=== PATIENT | male | born 1945 | race Caucasian/White ===

== ENCOUNTER → 2020-04-22 08:18 | Outpatient (CLI) | payer OTHER, SELFPAY ==
--- NOTE | 2020-04-22 09:20 | DI.CT.S_ITS ---
PROCEDURE: CT CHEST ABD PEL W CON INDICATIONS: Abnormal weight loss,Epigastric pain TECHNIQUE: After the administration of oral and intravenous contrast, 5 mm thick sections acquired from the lung apices to the symphysis. 5 mm coronal and sagittal reformats were performed, with additional 7 mm coronal MIP reformats through the lungs. For radiation dose reduction, the following was used: automated exposure control, adjustment of mA and/or kV according to patient size. COMPARISON: None. FINDINGS: Image quality: Excellent. CHEST: Scattered subsegmental atelectasis and/or scarring. No focal consolidation. No pleural effusions or pneumothorax. Central and peripheral airways appear patent and normal in caliber. Mediastinum: Heart size is normal. No pericardial effusion. No mediastinal or hilar adenopathy by size criteria. Thoracic aorta and central pulmonary arteries are normal in size. Small hiatal hernia. Chest wall: No axillary or supraclavicular adenopathy by size criteria. Thyroid is grossly unremarkable ABDOMEN: Solid organs: Liver is normal in size and enhancement. The gallbladder is grossly unremarkable. Biliary system is non dilated. Pancreas enhances normally. Spleen is normal in size and enhancement. No adrenal nodules. Bilateral renal cortical thinning/atrophy. No hydronephrosis. Punctate possible left nephrolithiasis on image 42/5, in the interpolar region Peritoneum and bowel: Bowel loops demonstrate normal wall thickness and caliber. No free fluid or air. Colonic diverticulosis is seen without evidence of acute complication. Nodes and vessels: No retroperitoneal or mesenteric adenopathy by size criteria. Aorta and inferior vena cava are normal in size. Tiny fat containing periumbilical hernia. PELVIS: Genitourinary: Bladder wall thickness is normal. Miscellaneous: No inguinal hernias or adenopathy. Bones: No vertebral body compression fracture. Spondylytic changes and facet arthropathy. IMPRESSION: Incidental colonic diverticulosis. No lymphadenopathy. No discrete mass lesion identified. Additional chronic and incidental findings as above. Dictated by: Addy Pagan M.D. on 04/22/2020 at 9:57 Approved by: Addy Pagan M.D. on 04/22/2020 at 10:02
== END ==
PROVIDERS: PCP Internal Medicine; Referring Provider Internal Medicine; Visit Provider Internal Medicine
DX: R10.13 Epigastric pain (principal); R63.4 Abnormal weight loss; R91.1 Solitary pulmonary nodule; K57.90 Diverticulosis of intestine, part unspecified, without perforation or abscess without bleeding; F10.11 Alcohol abuse, in remission; Z87.891 Personal history of nicotine dependence
CPT/HCPCS: 71260; 74177; Q9967

== ENCOUNTER → 2020-09-20 12:32 | Outpatient (CLI) | payer OTHER, SELFPAY | PROVIDERS: PCP Internal Medicine; Referring Provider Internal Medicine; Visit Provider Internal Medicine | DX: M85.851 Other specified disorders of bone density and structure, right thigh (principal); Z87.891 Personal history of nicotine dependence | CPT/HCPCS: 77080 ==

== ENCOUNTER → 2020-12-21 10:52 | Outpatient (CLI) | payer OTHER, SELFPAY ==
[2020-12-21 12:35] LABS: COVID19 -Nasal RAPID Negative (Negative)
== END ==
PROVIDERS: PCP Internal Medicine; Visit Provider Student in an Organized Health Care Education/Training Program
DX: Z01.812 Encounter for preprocedural laboratory examination (principal); Z20.822 Contact with and (suspected) exposure to COVID-19
CPT/HCPCS: 87635; C9803

== ENCOUNTER 2020-12-23 12:25 | Day surgery (SDC) | payer OTHER, SELFPAY ==
[2020-12-23] VITALS (7 sets, daily range): BP systolic 90–122; BP diastolic 53–67; PULSE 64–78; RESP 12–18; TEMP 36.3–37.3; O2SAT 94–97
--- NOTE | 2020-12-23 | PATH_ITS ---
[facility] Accession Number: [id number] . 01 Material submitted: . colon - ASCENDING COLON 2MM . 02 Diagnosis: Ascending Colon, 2 mm, Biopsy: Tubular adenoma. MRV 12/27/2020 1123 Local . 02 Electronically signed: . Jackie Pedroza MD, Pathologist NPI- [id number] . 01 Gross description: . ASCENDING COLON 2MM: Received in formalin is 1 fragment(s) of van, soft tissue measuring 0.4 x 0.3 x 0.2 cm submitted entirely in 1 cassette(s) /LIZ 12/24/2020 0511 Local . 02 Pathologist provided ICD-10: D12.2 . 02 CPT . 336201 Performed at: 01 [facility] [address] [id number] MD David Hernandez MD Phone: [phone] Performed at: 02 [facility] [address] [place], [place] [id number] MD Jackie Pedroza MD Phone: [phone]
--- NOTE | 2020-12-23 12:04 | PM.HP.1 ---
History of Present Illness History of Present Illness Date Patient Seen: 12/23/20 Chief complaint: SDC Narrative: 75 year old male comes in today for consideration of a screening colonoscopy. Last colonoscopy in 2010, normal. There have been no lower GI symptoms suggesting disease such as change in bowel habits, bleeding, abdominal pain or anemia. There's been no family history of colon cancer or colon polyps. Overall health issues have been stable, including no major cardiac events for at least 6 weeks. PCP: NAJMA Garcia Past medical history: Osteopenia Insomnia Peripheral neuropathy, feet Unintentional weight loss History of tobacco dependence History of alcohol abuse Basal julia carincoma Past surgical history: Colonoscopy, 2010, normal Family history: No colon cancer or colon polyps. Social history: , 2009. Retired. 1 alcoholic drink per week. Patient History Medical History (Updated 12/23/20 @ 12:54 by Loyda Westbrook RN) Basal cell carcinoma History of alcohol abuse Hypertriglyceridemia Osteopenia Osteopenia Peripheral neuropathy Stopped smoking with greater than 40 pack year history Unintentional weight loss Meds Home Medications and Allergies Home Medications Medication Instructions Recorded Confirmed Type gabapentin 100 mg capsule 100 mg PO BID 12/23/20 12/23/20 History melatonin 5 mg capsule 5 - 15 mg PO BEDTIME 12/23/20 12/23/20 History multivitamin 1 tab PO DAILY 12/23/20 12/23/20 History omega-3 fatty acids 1 cap PO DAILY 12/23/20 12/23/20 History Allergies Allergy/AdvReac Type Severity Reaction Status Date / Time No Known Drug Allergies Allergy Verified 12/23/20 12:45 Review of Systems Review of Systems Narrative: See HPI. Exam Narrative Exam Narrative: GENERAL: Alert and oriented, appearing stated age and in no acute distress. HEENT: Head normocephalic/atraumatic. Pupils equal, round, and reactive to light and accomodation. Extraocular muscles intact. Tympanic membranes clear. Nasal mucosa moist, septum midline. Oral mucosa moist, no lesions. Neck soft and supple, no lymphadenopathy. LUNGS: Clear to ausculation bilaterally, no wheezes, rhonchi or rales. CV: Normal S1 and S2 with regular rate and rhythm, no audible murmurs, rubs or gallops. ABDOMEN: Soft, non-tender, non-distended, no organomegaly. Positive bowel sounds. EXTREMITIES: No clubbing, cyanosis, or edema. NEURO: Cranial nerves II through XII grossly intact, no focal deficits. PSYCH: Alert and oriented x 3. SKIN: No concerning lesions. Assessment & Plan Assessment & Plan narrative: 1. Screening for colon cancer Plan for colonoscopy. The nature and character of the procedure as well as anticipated results were discussed. The possibility of not completing the procedure was also discussed. Possible complications including aspiration pneumonia, bleeding, perforation and reaction to medications either for sedation or preparation and missed lesions were discussed. Questions were answered and proceeding to the colonoscopy was elected. Informed consent signed. I sincerely appreciate the referral allowing me to participate in this patient's care. Please contact me with any questions or concerns.
--- NOTE | 2020-12-23 12:07 | PM.OP.ENDO ---
Operative Date/Time/Diagnoses Date of procedure: 12/23/20 Procedure Notes SCOAP/Timeout: 2:11 p.m. Procedure in detail: ENDOSCOPIST: Fanny Grande MD Sedation RN: Priyanka Goodwin RN Sedation start time: 1:11 p.m. Sedation end time: 1:52 p.m. PROCEDURE: Colonoscopy with cold biopsy INDICATIONS: 1. Screening for colon cancer MEDICATION: Levsin 0.125 mg sublingual, incremental doses of Versed and fentanyl until appropriate level sedation achieved. ASA CLASS: 2 CECAL WITHDRAWAL TIME: 7 minutes COMPLICATIONS: None. EXTENT OF PROCEDURE: Cecum. QUALITY OF PREP: Good with portions of liquid stool. PROCEDURE: Prior to insertion of the colonoscope, a digital rectal examination was accomplished with circumferential palpation of the distal rectal mucosa without significant findings being noted. The high-definition colonoscope was passed into the rectum in the usual fashion and advanced over to the cecum without difficulty. The ileocecal valve, appendiceal stoma, and medial wall all could be inspected and no abnormalities were seen. ASCENDING COLON: As the colonoscope was withdrawn, care was taken to expose and inspect the haustral folds and a 2 mm polyp was seen and removed with cold biopsy forceps. Mild diverticulosis. HEPATIC FLEXURE: Normal, no polyps, diverticula or other abnormalities. TRANSVERSE COLON: Mild diverticulosis otherwise, normal, no polyps, or other abnormalities. DESCENDING COLON: Moderate diverticulosis, otherwise, normal, no polyps, or other abnormalities. SIGMOID COLON: Moderate diverticulosis, otherwise, normal, no polyps, or other abnormalities. RECTUM: Normal. J maneuver was produced. There was no significant perianal disease. The J maneuver was broken. The remainder of the rectum was inspected and there was moderate external hemorrhoid disease. The scope was withdrawn. IMPRESSION: 1. Ascending polyp x1, 2 mm, removed with cold biopsy forceps 2. Pancolonic diverticulosis, left greater than right 3. External hemorrhoid disease, nonthrombosed, moderate PLAN: 1. Follow-up in clinic status post pathology results. The possibility of a missed lesion including a malignancy has been discussed with the patient previously. Potential alarm symptoms have been discussed and should be reported immediately.
[2020-12-23] MEDS: LACTATED RINGERS 1,000 ML 200 ML IV (12:54)
[2020-12-23] MEDS: HYOSCYAMINE 0.125 MG TABLET PO (13:10)
[2020-12-23] MEDS: MIDAZOLAM 5 MG/5 ML VIAL IV (14:09)
[2020-12-23] MEDS: fentaNYL 250 MCG/5 ML INJ IV (14:09)
== END 2020-12-23 15:25 | disposition home or self-care (01) ==
PROVIDERS: PCP Internal Medicine; Referring Provider Student in an Organized Health Care Education/Training Program; Visit Provider Student in an Organized Health Care Education/Training Program
PROC: 0DJD8ZZ Inspection of Lower Intestinal Tract, Via Natural or Artificial Opening Endoscopic (ICD-10-PCS; CPT 45378; principal; 2020-12-23 13:45)
DX: Z12.11 Encounter for screening for malignant neoplasm of colon (principal); K57.30 Diverticulosis of large intestine without perforation or abscess without bleeding; D12.2 Benign neoplasm of ascending colon
CPT/HCPCS: 45380; J2250; J3010

== ENCOUNTER → 2022-10-25 11:17 | Outpatient (CLI) | payer OTHER, SELFPAY ==
--- NOTE | 2022-10-25 | DI.CT.S_ITS ---
PROCEDURE: CT CHEST WO CON INDICATIONS: Other nonspecific abnormal finding of lung field TECHNIQUE: Noncontrast 5 mm thick sections acquired from the pulmonary apices to the posterior costophrenic angles. 1 mm lung window, 5 mm thick coronal and sagittal and 7 mm axial MIP reformats were then acquired. For radiation dose reduction, the following was used: automated exposure control, adjustment of mA and/or kV according to patient size. COMPARISON: [facility], CT, CT CHEST ABD PEL W CON, 04/22/2020, 9:15. FINDINGS: Image quality: Excellent. Lungs and pleura: Pulmonary nodules are as follows (all described on series 3): 1. Extreme left lung base, lateral aspect, image 303, stable 8 mm pulmonary nodule. 2. Stable 6 mm subsolid pulmonary nodule, image 77/3. No new or increasing pulmonary nodules. Mediastinum: Heart size is normal. No pericardial effusion. No mediastinal adenopathy by size criteria. Thoracic aorta and central pulmonary arteries are normal in size. Esophagus is normal in caliber. No hiatal hernia. Bones and chest wall: No suspicious bony lesions. No vertebral body compression fractures. No axillary or supraclavicular adenopathy by size criteria. Thyroid gland unremarkable . Abdomen: Visualized upper abdominal solid organs and bowel loops appear normal in the absence of contrast. IMPRESSION: 1. 2 separate pulmonary nodules are stable times greater than 2 years, and are consistent with benign pulmonary nodules. Comment: If this patient has significant smoking history and satisfies criteria for lung screen CT, would recommend lung screen CT in 12 months. If there is no significant smoking history, no further follow-up is suggested for these lesions. Dictated by: Taras Leigh M.D. on 10/25/2022 at 18:00 Approved by: Taras Leigh M.D. on 10/25/2022 at 18:06
== END ==
PROVIDERS: PCP Internal Medicine; Referring Provider Internal Medicine; Visit Provider Internal Medicine
DX: R91.8 Other nonspecific abnormal finding of lung field (principal); G57.93 Unspecified mononeuropathy of bilateral lower limbs
CPT/HCPCS: 71250

== ENCOUNTER 2022-10-26 12:09 | Emergency (ER) | payer OTHER, SELFPAY ==
[2022-10-26 12:23] VITALS: BP 148/97; PULSE 87; RESP 18; TEMP 36.8; O2SAT 97; BMI 24.6
--- NOTE | 2022-10-26 12:36 | ED_ITS ---
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 Patient states about 830 this morning he was working on his laptop he noticed he had blurred vision for about 60 seconds or less that resolved on its own. He states it seemed to be more on the periphery and clear in the central. He states it seemed to be both eyes but the right eye seemed to clear up faster than the left. Patient states no additional symptoms. He has not had symptoms in the past that are similar. Denies headache, he denies any dizziness or lightheadedness, no passing out. No difficulty with speech. No numbness, tingling or weakness. No chest pain or shortness of breath. No nausea or vomiting. Normal bowel movements with no black or bloody stools. No urinary symptoms. No new swelling in extremities. Patient states his only medication daily as gabapentin. He states he had cataract surgery about a month ago. He follows with kash BAUER. Former smoker no active tobacco use, no alcohol, no illicit. Rema Arnett is his primary care. He states he presents today after googling his symptoms. On Anticoagulants: No Related Data Home Medications Medication Instructions Recorded Confirmed gabapentin 100 mg capsule 100 mg PO BID 12/23/20 12/23/20 melatonin 5 mg capsule 5 - 15 mg PO BEDTIME 12/23/20 12/23/20 multivitamin 1 tab PO DAILY 12/23/20 12/23/20 omega-3 fatty acids 1 cap PO DAILY 12/23/20 12/23/20 Allergies Allergy/AdvReac Type Severity Reaction Status Date / Time No Known Drug Allergies Allergy Verified 12/23/20 12:45 Review of Systems Review of Systems ROS Unobtainable: All systems reviewed & are unremarkable except as noted in HPI and below Hematologic/Lymphatic On Anticoagulants: No Patient History Medical History Basal cell carcinoma History of alcohol abuse Hypertriglyceridemia Osteopenia Osteopenia Peripheral neuropathy Stopped smoking with greater than 40 pack year history Unintentional weight loss Social History household members: none Smoking Status: Former smoker alcohol intake: current Smoking Status: Former smoker alcohol intake frequency: holidays/special occasions only Substance Use Type: does not use Exam Narrative Exam Narrative: GEN: well nourished, well appearing male, alert and oriented x 3, patient appears to be in mild distress. HEENT: Atraumatic, pupils are equal round reactive to light, extraocular movements are intact, nares are clear. no facial droop. Visual acuity: right [20/50], left [20/30] without correction. Twenty 40 bilaterally. General: no globe trauma Eyelids: normal inspection Conjunctiva/Sclera: normal inspection HEART: Regular rate and rhythm without murmur, clicks, rubs. Pulses are equal in upper and lower extremities LUNGS:Lungs clear to auscultation, no wheezes, rales, crackles, chest moves sy mmetrically ABD:bowel sounds normal, soft, non-tender, no guarding, rebound, rigidity, no masses noted, no hepatosplenomegaly MSCL: Non-tender, no muscle atrophy, muscles strength 5/5 upper and lower extremities, full range of motion, normal gait NEURO:CN 2-12 intact, sensation normal, finger nose finger test normal, heel alicea test normal SKIN: No rash, erythema or other skin changes Initial Vital Signs Initial Vital Signs: Vital Signs Temperature 98.3 F 10/26/22 12:23 Pulse Rate 87 10/26/22 12:23 Respiratory Rate 18 10/26/22 12:23 Blood Pressure 148/97 H 10/26/22 12:23 Pulse Oximetry 97 10/26/22 12:23 Oxygen Delivery Method Room Air 10/26/22 12:23 Scores NIH Stroke Scale Level of Conciousness: Alert, keenly responsive Ask month/age: Answers both questions correctly. Open/close eyes, close hand: Performs both tasks correctly Best gaze horizontal: Normal Visual tony: No visual loss Facial palsy: Normal symetrical movement Left arm drift: No drift for full 10 sec Right arm drift: No drift for full 10 sec Left leg drift: No drift for full 5 sec Right leg drift: No drift for full 5 sec Limb ataxia: Absent Sensory on face/arms/legs: Normal, no sensory loss Best language: No aphasia, normal Dysarthria: Normal Extinction or inattention: No abnormality Total NIH Stroke scale score: 0 Course Orders Ordered: ED Orders 10/26/22 12:30 BMP [Basic Metabolic Panel] Stat CBC Auto Diff [Complete Blood Count AUTO DIFF] Stat PTT Partial Thromboplastin Holden Stat Prothrombin Time INR Stat 10/26/22 12:54 CT head/brain wo con Stat Vital Signs Vital signs: Vital Signs - 8 hr 10/26/22 12:23 10/26/22 13:30 10/26/22 14:21 Temperature 98.3 F Pulse Rate 87 79 80 Respiratory Rate 18 16 16 Blood Pressure 148/97 H 106/56 L 116/60 Pulse Oximetry 97 97 96 Oxygen Delivery Method Room Air Room Air Room Air MDM - Neuro Symptoms/Deficit Lab Data 10/26/22 12:30 10/26/22 12:30 Labs: Lab Results 10/26/22 10/26/22 10/26/22 Range/Units 12:30 12:30 12:30 WBC 11.3 H (4.5-11.0) X10^3/uL RBC 4.71 (4.5-5.9) X10^6/uL Hgb 14.3 (13.5-17.5) g/dL Hct 41.6 (41-53) % MCV 88.4 (80-100) fL MCH 30.3 (26-34) PG MCHC 34.3 (30-36) % RDW 13.9 (11.6-14.8) % Plt Count 238 (150-400) X10^3/uL Neut % (Auto) 79.1 H (50-75) % Lymph % (Auto) 12.7 L (25-40) % [place] % (Auto) 7.3 (3-14) % Eos % (Auto) 0.4 L (2-4) % Baso % (Auto) 0.5 (0-2) % Neut # (Auto) 8900 H (0148-0445) /uL Lymph # (Auto) 1400 (0155-9492) /uL [place] # (Auto) 800 (0-900) /uL Eos # (Auto) 0 (0-450) /uL Baso # (Auto) 100 (0-100) /uL PT 11.1 (10.1-12.7) SECONDS INR 1.0 (0.9-1.3) APTT 29 (26-36) SECONDS Sodium 138 (137-145) mmol/L Potassium 4.1 (3.4-5.1) mmol/L Chloride 106 (98-107) mmol/L Carbon Dioxide 26 (22-32) mmol/L BUN 12 (9-20) mg/dL Creatinine 0.75 (0.66-1.25) mg/dL Estimated GFR > 60 (>60) mL/min BUN/Creatinine Ratio 16.0 (6-22) Glucose 112 H (80-110) mg/dL Calcium 8.9 (8.4-10.2) mg/dL Imaging Data CT scan - head: Radiologist's Impression: [address] [address] [address] Scan Report Signed Patient: Magen Harrington MR#: [id number] : 1945 Acct:[id number] Age/Sex: 77 / M Date of Service: 10/26/22 Loc: ED Accession Number: [id number] ?? Procedure: CT head/brain wo con Ordering Provider: Naomi Humphrey D.O. PROCEDURE:? CT HEAD/BRAIN WO CON ? INDICATIONS:? blurred vision resolved. ? TECHNIQUE:? Noncontrast 4.5 mm thick angled axial sections acquired from the foramen magnum to the vertex, with coronal and sagittal reformats.? For radiation dose reduction, the following was used:? automated exposure control, adjustment of mA and/or kV according to patient size.? ? COMPARISON:? None. ? FINDINGS:? Image quality:? Excellent.? ? CSF spaces:? Basal cisterns are patent.? No extra-axial fluid collections.? Ventricles are normal in size and shape.? ? Brain:? No midline shift.? No intracranial masses or hemorrhage.? No area of hypodensity in a large vascular distribution to suggest acute infarction. Periventricular h ypodensity consistent with chronic microvascular ischemic change. Age-related parenchymal loss. ? Skull and face:? Calvarium and visualized facial bones are intact, without suspicious lesions.? ? Sinuses:? Visualized sinuses and mastoids are clear.? ? IMPRESSION:? No acute intracranial abnormality. ? ? Dictated by: Juan Miguel Nicolas M.D. on 10/26/2022 at 13:11 ? ? Approved by: Juan Miguel Nicolas M.D. on 10/26/2022 at 13:14?? MDM Narrative Medical decision making narrative: This a 77-year-old male who had less than 60 seconds of blurred vision both eyes more in the periphery than central. Patient's symptoms are less concerning for stroke, NIH is 0. His only medication is gabapentin for nondiabetic neuropathy. His neurologic exam is otherwise negative with no other acute changes. He did note he was working on his laptop there may have been some focusing issue. He is a month out from cataract surgery but has not been having pain, not having persistent or intermittent symptoms. Seemed to affect both eyes making issues such as retinal detachment, acute angle glaucoma or other changes much less likely. After discussion patient elects for some additional workup including imaging and labs Discharge Plan Departure Patient Disposition: Home Clinical Impression: Blurred vision Activity Restrictions/Additional Instructions: Your workup today is overall reassuring. Please follow-up for recheck if you have recurrent episodes of blurred vision that would recommend follow up with your set key driver at [facility]. If you develops your severe headaches, recurrent or persistent vision changes, new numbness, tingling weakness, loss of vision, difficulty with speech, facial droop, altered mental status were difficulties with gait or movement please return for re-evaluation. Prescriptions: No Action gabapentin 100 mg capsule 100 mg PO BID multivitamin Tablet 1 tab PO DAILY melatonin 5 mg Capsule 5 - 15 mg PO BEDTIME omega-3 fatty acids 1 cap PO DAILY Referrals: Rema Arnett ARNP [Primary Care Provider] - Stand Alone Forms: Patient Portal/API
--- NOTE | 2022-10-26 12:46 | PC.NURSE ---
Bilat vision blurriness and lightheadedness at 0830 that lasted one minute. No lasting symptoms. Negative FAST. A&Ox4. Clear speech, ambulating well.
--- NOTE | 2022-10-26 12:54 | DI.CT.S_ITS ---
PROCEDURE: CT HEAD/BRAIN WO CON INDICATIONS: blurred vision resolved. TECHNIQUE: Noncontrast 4.5 mm thick angled axial sections acquired from the foramen magnum to the vertex, with coronal and sagittal reformats. For radiation dose reduction, the following was used: automated exposure control, adjustment of mA and/or kV according to patient size. COMPARISON: None. FINDINGS: Image quality: Excellent. CSF spaces: Basal cisterns are patent. No extra-axial fluid collections. Ventricles are normal in size and shape. Brain: No midline shift. No intracranial masses or hemorrhage. No area of hypodensity in a large vascular distribution to suggest acute infarction. Periventricular hypodensity consistent with chronic microvascular ischemic change. Age-related parenchymal loss. Skull and face: Calvarium and visualized facial bones are intact, without suspicious lesions. Sinuses: Visualized sinuses and mastoids are clear. IMPRESSION: No acute intracranial abnormality. Dictated by: Juan Miguel Nicolas M.D. on 10/26/2022 at 13:11 Approved by: Juan Miguel Nicolas M.D. on 10/26/2022 at 13:14
[2022-10-26 13:04] LABS: Add Manual Diff / Slide Review NO; Basophils Absolute Auto 100 /uL (0-100); Basophils Percent Auto 0.5 % (0-2); Eosinophils Absolute Auto 0 /uL (0-450); Eosinophils Percent Auto 0.4 % (2-4); Hematocrit 41.6 % (41-53); Hemoglobin 14.3 g/dL (13.5-17.5); Lymphocytes Absolute Auto 1400 /uL (1100-4500); Lymphocytes Percent Auto 12.7 % (25-40); Mean Corpuscular HGB Conc 34.3 % (30-36); Mean Corpuscular Hemoglobin 30.3 PG (26-34); Mean Corpuscular Volume 88.4 fL (80-100); Monocytes Absolute Auto 800 /uL (0-900); Monocytes Percent Auto 7.3 % (3-14); Neutrophils Absolute Auto 8900 /uL (1500-7000); Neutrophils Percent Auto 79.1 % (50-75); Platelet Count 238 X10^3/uL (150-400); Prothrombin Time 11.1 SECONDS (10.1-12.7); Red Blood Cell Count 4.71 X10^6/uL (4.5-5.9); Red Cell Distribution Width 13.9 % (11.6-14.8); White Blood Cell Count 11.3 X10^3/uL (4.5-11.0)
[2022-10-26 13:06] LABS: PTT Partial Thromboplastin Tim 29 SECONDS (26-36)
[2022-10-26 13:08] LABS: Blood Urea Nitrogen 12 mg/dL (9-20); Calcium 8.9 mg/dL (8.4-10.2); Carbon Dioxide 26 mmol/L (22-32); Chloride 106 mmol/L (98-107); Estimated Glomerular Filt Rate > 60 mL/min (>60); Glucose 112 mg/dL (80-110); HEMOLYSIS < 15 (0-50); Potassium 4.1 mmol/L (3.4-5.1); Sodium 138 mmol/L (137-145)
[2022-10-26 13:30] VITALS: BP 106/56; PULSE 79; RESP 16; O2SAT 97
[2022-10-26 14:21] VITALS: BP 116/60; PULSE 80; RESP 16; O2SAT 96
== END 2022-10-26 14:23 | disposition home or self-care (01) ==
PROVIDERS: Emergency Provider Emergency Medicine; PCP Internal Medicine
DX: H53.9 Unspecified visual disturbance (principal); R29.700 NIHSS score 0; R79.89 Other specified abnormal findings of blood chemistry
CPT/HCPCS: 36415; 70450; 80048; 85025; 85610; 85730; 99283; 99284